=== PATIENT | female | born 1980 | race Caucasian/White ===

== ENCOUNTER 2020-02-29 11:34 | Outpatient (CLI) | payer BC, SELFPAY ==
--- NOTE | 2020-02-29 11:41 | US_ITS ---
WS: [id number] Ultrasound of subcutaneous tissue of the junction of the left neck and left shoulder, 02/29/2020 Clinical Data: NECK MASS Comparison: None. Findings: Only normal subcutaneous tissue could be seen. Normal vessels were seen. There is no evidence of any cyst, mass or abscess. US/US soft tissue head neck [id number] Impression: Normal ultrasound of subcutaneous tissue at the junction of the left neck and l eft shoulder.
== END 2020-02-29 11:35 | disposition home or self-care (01) ==
LOC: US 11:37
PROVIDERS: PCP Electrodiagnostic Medicine; Visit Provider Electrodiagnostic Medicine
DX: R22.1 Localized swelling, mass and lump, neck (principal)
CPT/HCPCS: 76536

== ENCOUNTER 2023-02-01 22:15 | Emergency (ER) | payer OTHER, SELFPAY ==
[2023-02-01 22:25] VITALS: BP 131/81; PULSE 88; RESP 14; TEMP 37; O2SAT 98; BMI 32.3
--- NOTE | 2023-02-01 22:29 | USR_ITS ---
PROCEDURE INFORMATION: Exam: US Duplex Left Lower Extremity Veins, Limited Exam date and time: 02/01/2023 11:01 PM Age: 42 years old Clinical indication: Swelling (edema) of limb; Lower extremity, left; Additional info: Leg swelling TECHNIQUE: Imaging protocol: Real-time duplex ultrasound of the left extremity with 2-D pacheco scale, color Doppler flow and spectral waveform analysis including responses to compression and other maneuvers (when performed) with image documentation. Limited exam focused on the left lower extremity veins. COMPARISON: No relevant prior studies available. FINDINGS: Left deep veins: Unremarkable. The common femoral, femoral, proximal profunda femoral and popliteal veins are patent without thrombus. Normal Doppler waveforms. Normal compressibility and/or augmentation response. Superficial veins: Unremarkable. Saphenofemoral junction is patent without thrombus. Soft tissues: Unremarkable. US/CV venous duplex [facility] [id number] IMPRESSION: No evidence of left leg deep vein thrombosis.
[2023-02-01 22:31] VITALS: PULSE 80
--- NOTE | 2023-02-01 22:40 | W.ED.EXTPRO ---
HPI - Extremity Problem General: Chief complaint: Extremity Problem,Nontraumatic Stated complaint: left leg pain Time Seen by Provider: 02/01/23 22:19 Source: patient Mode of arrival: ambulatory Limitations: no limitations History of Present Illness: 42-year-old female states that she had been at work all day walking tonight when she went to sit on the couch started having slight pain in her left calf she has been going on for 45 minutes states its intermittent nature denies any pain currently states she feels like her calf may be swollen is concerned she may have a DVT denies any fever has no redness. Denies any specific injuries. Associated symptoms: Deny chest pain, fever(s) or rash Review of Systems Const: Denies: fever(s), chills or change in appetite ENMT: Denies: throat pain Card: Denies: chest pain Resp: Denies: dyspnea GI: Denies: abdominal pain, nausea or vomiting Musc: Reports: extremity pain; Denies: neck pain or back pain Skin/Breast: Denies: rash Physical Exam Const: COMMON NORMALS: no acute distress and patient oriented x3 HENMT: COMMON NORMALS: normocephalic HEAD & SCALP: normocephalic Eye: COMMON NORMALS: conjunctivae normal CONJUNCTIVA: Yes conjunctivae normal Chest: COMMONS NORMALS: normal inspection of the chest Resp: COMMON NORMALS: normal respiratory effort and clear to auscultation bilaterally EFFORT & INSPECTION: Yes able to speak in complete sentences AUSCULTATION: clear to auscultation bilaterally Cardio: COMMON NORMALS: regular rate and regular rhythm RATE: regular rate RHYTHM: regular rhythm GI: INSPECTION: Yes normal to inspection Extremity: NARRATIVE EXTREMITY EXAM: no noticable calf swelling or tenderness. no erythema Neuro: COMMON NORMALS: patient oriented x3 Psych: COMMON NORMALS: mental status grossly normal Skin: COMMON NORMALS: no rashes or lesions noted GENERAL SKIN EXAM: no rashes or lesions noted Course Vital Signs: Vital signs: Vital Signs Temperature 98.6 F 02/01/23 22:25 Pulse Rate 98 02/01/23 22:41 Respiratory Rate 17 02/01/23 22:41 Blood Pressure 135/85 02/01/23 22:41 Pulse Oximetry 98 02/01/23 22:41 Oxygen Delivery Me thod Room Air 02/01/23 22:41 MDM - Extremity (Nontraumatic) Medical Decision Making Patient presents here with left leg pain ultrasound shows no DVT is likely muscular in nature exam here is benign she is stable for discharge she is to follow-up with PCP and return if worsening. Medical Records I reviewed the patient's medical records. Lab Data I reviewed the patient's lab results. Discharge Plan Discharge Patient Disposition: Home Clinical Impression: Left leg pain Condition: Stable Discharge Orders: Discharge ED (Routine); Ordered 02/01/23 Ordered By: Stephen Ovalle Referrals: Maxx Yeager DO [Primary Care Provider] - Discharge Diet: Advance as tolerated Discharge Activity: Resume usual activity Patient Instructions: Leg Pain (ED) Coding Level of Care Code ED Lead Worker Of Housekeeping And Laundry for Carmen Pulliam
[2023-02-01 22:41] VITALS: BP 135/85; PULSE 98; RESP 17; O2SAT 98
== END 2023-02-01 23:20 | disposition home or self-care (01) ==
PROVIDERS: Emergency Provider Emergency Medicine; PCP Electrodiagnostic Medicine
DX: M79.605 Pain in left leg (principal)
CPT/HCPCS: 93971; 99284

== ENCOUNTER → 2023-02-15 11:00 | Outpatient (BNVA) | payer OTHER, SELFPAY | PROVIDERS: PCP Electrodiagnostic Medicine; Visit Provider Nurse Practitioner Women's Health | DX: Z12.4 Encounter for screening for malignant neoplasm of cervix (principal) | CPT/HCPCS: 87624 ==

== ENCOUNTER 2023-03-02 15:11 | Outpatient (CLI) | payer OTHER, SELFPAY ==
--- NOTE | 2023-03-02 15:33 | MM_ITS ---
WS: [id number] BILATERAL 3D TOMOSYNTHESIS DIGITAL SCREENING MAMMOGRAPHY WITH CAD CLINICAL INFORMATION: Z12.39 - Encounter for other screening for malignant neop... HISTORY: Screening mammogram. No current complaints. COMPARISON: Baseline TECHNIQUE: Bilateral CC and MLO views. FINDINGS: The breasts are composed of heterogeneous fibroglandular density tissue, which can limit the detectio n of small underlying mass lesions. No suspicious mass, asymmetry, calcifications, or architectural d istortion. No evidence of malignancy. IMPRESSION: MM/[place] [id number] BI-RADS: 1-Negative FOLLOW UP: 1 Year Follow-up Recommend return to annual screening mammography.
== END 2023-03-02 15:12 | disposition home or self-care (01) ==
PROVIDERS: PCP Electrodiagnostic Medicine; Visit Provider Nurse Practitioner Women's Health
DX: Z12.31 Encounter for screening mammogram for malignant neoplasm of breast (principal)
CPT/HCPCS: 77063; 77067

== ENCOUNTER 2023-09-22 06:39 | Outpatient (CLI) | payer OTHER, SELFPAY ==
--- NOTE | 2023-09-22 07:00 | MR_ITS ---
WS: [id number] MRI LEFT KNEE HISTORY: acute tear medial meniscus COMPARISON: LEFT knee radiograph 08/22/2023 Anterior cruciate ligament: Intact ACL. There is a small amount of fluid adjacent to the ACL. Posterior cruciate ligament: Intact. Medial collateral ligament: Intact. Posterior lateral corner structures: Intact. Medial menisci: Intact. Normal signal, size and shape. Lateral meniscus: Intact. Normal signal, size and shape. Extensor mechanism: Distal quadriceps tendon and patellar tendons are intact. Fluid and soft tissue: Small suprapatellar joint effusion. No Vargas's cyst. Osseous and articular structures: Patellofemoral compartment: Mild narrowing of the patellofemoral joint space. No marrow edema. Medial compartment: Mild narrowing of the medial compartment with mild thinning and fissuring of the cartilage. No full-thickness defects. There is superficial marrow edema and irregularity of the lizzy x involving the anterior medial femoral condyle. There is also adjacent soft tissue edema at this loc ation. This may be the site of prior injury. Similar findings can be seen with arthritis. Lateral compartment: Minimal joint space narrowing and thinning of the cartilage. No full-thickness d efect. No marrow edema. IMPRESSION: 1. No meniscal tear. 2. No ACL tear. There is fluid adjacent to the ACL but no tear. 3. Small suprapatellar joint effusion. 4. No fracture. There is superficial marrow edema in the anterior medial femoral condyle. This may b e related to recent trauma or be related to arthritis. 5. Normal MCL.
== END 2023-09-22 06:40 | disposition home or self-care (01) ==
LOC: RAD 06:39
PROVIDERS: PCP Electrodiagnostic Medicine; Visit Provider Electrodiagnostic Medicine
DX: S83.242D Other tear of medial meniscus, current injury, left knee, subsequent encounter (principal); R52 Pain, unspecified; M25.462 Effusion, left knee; X58.XXXD Exposure to other specified factors, subsequent encounter
CPT/HCPCS: 73721

== ENCOUNTER → 2024-06-26 10:26 | Outpatient (BNVA) | payer OTHER, SELFPAY | PROVIDERS: PCP Electrodiagnostic Medicine; Visit Provider Surgery | DX: K82.9 Disease of gallbladder, unspecified | CPT/HCPCS: 99204 ==

== ENCOUNTER 2024-07-02 07:33 | Outpatient (CLI) | payer OTHER, SELFPAY ==
--- NOTE | 2024-07-02 07:42 | MR_ITS ---
WS: [id number] MRI LEFT KNEE HISTORY: LEFT KNEE PAIN COMPARISON: 09/22/2023, radiograph 08/22/2023 Anterior cruciate ligament: ACL is intact. There is fluid extending along the ACL. Posterior cruciate ligament: Intact. Medial collateral ligament: Intact. Posterior lateral corner structures: Intact. Medial menisci: Intact. Normal signal, size and shape. Lateral meniscus: Mild intrasubstance degeneration in the posterior horn. Signal does not extend to a n articular surface. Extensor mechanism: Distal quadriceps tendon and patellar tendons are intact. Fluid and soft tissue: Small suprapatellar joint effusion. Fluid extends into the intercondylar notch and posterior to the femoral condyles. Fluid has slightly increased since the prior exam. No Vargas's cyst. Osseous and articular structures: Patellofemoral compartment: Mild narrowing of the patellofemoral space and there is mild superficial chondromalacia, greatest involving the medial facet. No marrow edema within the patella. Medial compartment: Mild narrowing of the medial compartment. Reidentified is marrow edema along the anteromedial tibial plateau. Cortical irregularity along the articular surface. Mild to moderate diff use chondromalacia along the weightbearing surface of the femoral condyle. Lateral compartment: Negative. MR/MR knee LT wo con* [id number] IMPRESSION: 1. No ACL or meniscal tear. 2. Progression of degenerative arthropathy in the medial compartment. Mild pro gression of chondromalacia with joint space narrowing and marrow edema along th e anterolateral tibial plateau. 3. Mild chondromalacia medial patellar facet.
== END 2024-07-02 07:34 | disposition home or self-care (01) ==
LOC: RAD 07:35
PROVIDERS: PCP Electrodiagnostic Medicine; Visit Provider Nurse Practitioner Family
DX: Z01.89 Encounter for other specified special examinations (principal); M12.862 Other specific arthropathies, not elsewhere classified, left knee; M94.262 Chondromalacia, left knee
CPT/HCPCS: 73721

== ENCOUNTER → 2024-08-01 07:51 | Outpatient (BNVA) | payer OTHER, SELFPAY | PROVIDERS: PCP Electrodiagnostic Medicine; Visit Provider Student in an Organized Health Care Education/Training Program | DX: M25.561 Pain in right knee (principal); M25.562 Pain in left knee; M17.12 Unilateral primary osteoarthritis, left knee | CPT/HCPCS: 20610; 73560; 73565; 99204; J3301 ==

== ENCOUNTER 2024-10-30 10:31 | Emergency (ER) | payer OTHER, SELFPAY ==
[2024-10-30 10:43] VITALS: BP 153/81; PULSE 60; RESP 16; TEMP 36.8; O2SAT 98; BMI 25.7
[2024-10-30 11:35] LABS: Basophils # 0.1 10^3/uL (0.0-0.1); Basophils % 1.3 %; Eosinophils # 0.1 10^3/uL (0.0-0.8); Eosinophils % 1.8 %; Hematocrit 35.8 % (36-47); Lymphocytes # 1.4 10^3/uL (0.8-4.8); Lymphocytes % 25.2 %; Mean Corpuscular HGB Conc 32.4 g/dL (30-55); Mean Corpuscular Hemoglobin 29.7 pg (27-33); Mean Corpuscular Volume 91.6 fl (85-98); Mean Platelet Volume 9.2 fL (7.4-10.4); Monocytes # 0.4 10^3/uL (0.2-0.9); Monocytes % 7.4 %; Neutrophils # 3.49 10^3/uL (1.8-7.7); Neutrophils % 64.1 %; Nucleated Red Blood Cells % 0 %; Platelet Count 264 10^3/cmm (157-399); Red Blood Count 3.91 10^6/uL (3.85-5.65); Red Cell Distribution Width 13.4 % (12.1-15.1); White Blood Count 5.44 10^3/uL (3.29-11.43)
[2024-10-30 11:55] LABS: Alanine Aminotransferase 7 U/L (0-33); Albumin Level 3.9 g/dL (3.5-5.2); Alkaline Phosphatase 66 U/L (35-105); Anion Gap 13.8 (5-19); Aspartate Amino Transferase 9 U/L (0-32); Blood Urea Nitrogen 13 mg/dL (6-20); Calcium 8.9 mg/dL (8.5-10.5); Carbon Dioxide 26 mmol/L (22-29); Chloride 103 mmol/L (98-107); Creatinine Clr Calc Pharmacy 92.2243; Globulin 3.4 g/dL (1.3-4.6); Glomerular Filtration Rate 78.3 mL/min (90-130); Glucose 102 mg/dL (65-115); Osmolality Calculated 288 mOsm/kg (285-295); Potassium 3.8 mmol/L (3.5-5.1); Sodium 139 mmol/L (136-145); Total Bilirubin 1.3 mg/dL (0.15-1.2); Total Protein 7.3 g/dL (6.6-8.7)
--- NOTE | 2024-10-30 11:56 | US_ITS ---
WS: [id number] US pelvis lmt w transvag HISTORY: verify IUD placement COMPARISON: None available. Uterus: 9.4 cm x 6.7 cm x 5.6 cm. Mildly enlarged uterus. Endometrium: 0.8 cm. Limited visualization of the entire IUD but it does appear appropriately positioned. IUD does not extend beyond the fundus of the uterus. Right ovary: 2.7 cm x 2.0 cm x 1.3 cm. Normal size and vascularity, no cystic or solid masses. Left ovary: 2.4 cm x 1.7 cm x 2.4 cm. Normal size and vascularity, no cystic or solid masses. No free fluid in the cul-de-sac. US/US pelvis lmt w transvag IMPRESSION: Appropriately positioned IUD.
[2024-10-30 12:09] VITALS: BP 126/85; O2SAT 98
--- NOTE | 2024-10-30 12:26 | ED_ITS ---
HPI - General Adult 2 General: Chief complaint: Vaginal Bleeding Stated complaint: vaginal bleeding, had a D&C on 10/23 Time Seen by Provider: 10/30/24 10:53 History of Present Illness: 44-year-old female who presents to the e mergency room with complaints of vaginal bleeding. 1 week ago patient had a D&C and placement of an IUD. She has had increasing bleeding since then. Procedure was done in [place]. She has not had any fever sweats or chills. No dysuria urgency or frequency. The IUD is a Mirena. Associated symptoms: Deny chest pain, dyspnea or rash Related Data Home Medications ?Medication ?Instructions ?Recorded ?Confirmed cetirizine 10 mg capsule (Zyrtec) 10 mg PO DAILY PRN 0 02/15/23 08/01/24 Allergies Allergy/AdvReac Type Severity Reaction Status Date / Time citalopram Allergy ADR-Confusi Verified 10/30/24 10:46 on Review of Systems 2 Const: Denies: fever(s) or chills Card: Denies: chest pain Resp: Denies: dyspnea GI: Denies: abdominal pain : Reports: vaginal bleeding; Denies: dysuria, urinary frequency or urinary urgency Musc: Denies: neck pain or back pain Skin/Breast: Denies: rash PFSH ED 2 PFSH: Family History Denies family history of Colon cancer Ovarian cancer Diabetes Hyperlipidemia Breast cancer Hypertension Uterine cancer Thyroid disease Stroke Social History Smoking and tobacco/nicotine status: former use of tobacco/nicotine Marital status: Physical Exam 2 Const: COMMON NORMALS: no acute distress GENERAL APPEARANCE: cooperative and comfortable ORIENTATION/CONSCIOUSNESS: Yes awake, Yes oriented to person, Yes oriented to place and Yes oriented to time HENMT: COMMON NORMALS: normocephalic, atraumatic and hearing grossly normal bilaterally HEAD & SCALP: normocephalic and atraumatic Resp: COMMON NORMALS: normal respiratory effort, No retractions, No use of accessory muscles and clear to auscultation bilaterally AUSCULTATION: clear to auscultation bilaterally Cardio: COMMON NORMALS: regular rate, regular rhythm and No murmurs present (Cardio) RATE: regular rate RHYTHM: regular rhythm GI: COMMON NORMALS: Soft to palpation and No hepatosplenomegaly present A USCULTATION: Yes normoactive bowel sounds PALPATION: Yes Soft to palpation, No Tenderness to palpation present (GI), No Guarding due to palpation present (GI) and Yes No hepatosplenomegaly present Extremity: COMMON NORMALS: normal to inspection, capillary refill normal, no clubbing, cyanosis or edema, no calf tenderness and no pedal edema Neuro: SENSORIUM/ORIENTATION: Yes oriented to person, Yes oriented to place and Yes oriented to time Skin: COMMON NORMALS: no rashes or lesions noted GENERAL SKIN EXAM: no rashes or lesions noted Course 2 Vital Signs: Vital signs: Vital Signs Temperature 98.2 F 10/30/24 10:43 Pulse Rate 84 10/30/24 16:19 Respiratory Rate 16 10/30/24 10:43 Blood Pressure 131/76 10/30/24 16:19 Pulse Oximetry 98 10/30/24 16:19 Oxygen Delivery Me thod Room Air 10/30/24 12:09 MDM - General Adult Medical Decision Making IUD is in place no migration. Patient still is having heavy bleeding. Certainly having a significant cramping however. I was able to get a hold of her housing director she recommends treating with estrogen. She will contact patient and call in estrogen dose for her. Hemoglobin stable at this time the housing director reported prior to surgery was slightly above 12 it is 11 6 today. Discussed with the patient she is in agreement we will discharge patient home have her follow-up with gynecology. Lab Data 10/30/24 11:28 10/30/24 11:28 Radiology Impressions Pelvic/Transvag US 10/30/24 11:56 IMPRESSION: Appropriately positioned IUD. Laboratory Results WBC 5.44 10^3/uL (3.29-11.43) 10/30/24 11:28 RBC 3.91 10^6/uL (3.85-5.65) 10/30/24 11:28 Hgb 11.60 g/dL (11.27-16.99) 10/30/24 11:28 Hct 35.8 % (36-47) L 10/30/24 11:28 MCV 91.6 fl (85-98) 10/30/24 11:28 MCH 29.7 pg (27-33) 10/30/24 11:28 MCHC 32.4 g/dL (30-55) 10/30/24 11:28 RDW 13.4 % (12.1-15.1) 10/30/24 11:28 Plt Count 264 10^3/cmm (157-399) 10/30/24 11:28 MPV 9.2 fL (7.4-10.4) 10/30/24 11:28 Neut % (Auto) 64.1 % 10/30/24 11:28 Lymph % (Auto) 25.2 % 10/30/24 11:28 [place] % (Auto) 7.4 % 10/30/24 11:28 Eos % (Auto) 1.8 % 10/30/24 11:28 Baso % (Auto) 1.3 % 10/30/24 11:28 Neut # (Auto) 3.49 10^3/uL (1.8-7.7) 10/30/24 11:28 Lymph # (Auto) 1.4 10^3/uL (0.8-4.8) 10/30/24 11:28 [place] # (Auto) 0.4 10^3/uL (0.2-0.9) 10/30/24 11:28 Eos # (Auto) 0.1 10^3/uL (0.0-0.8) 10/30/24 11:28 Baso # (Auto) 0.1 10^3/uL (0.0-0.1) 10/30/24 11:28 Nucleated RBC % (auto) 0 % 10/30/24 11:28 Nucleated RBCs # 0.0 /100WBC 10/30/24 11:28 Sodium 139 mmol/L (136-145) 10/30/24 11:28 Potassium 3.8 mmol/L (3.5-5.1) 10/30/24 11:28 Chloride 103 mmol/L (98-107) 10/30/24 11:28 Carbon Dioxide 26 mmol/L (22-29) 10/30/24 11:28 Anion Gap 13.8 (5-19) 10/30/24 11:28 BUN 13 mg/dL (6-20) 10/30/24 11:28 Creatinine 0.8 mg/dL (0.5-0.9) 10/30/24 11:28 GFR Calculation 78.3 mL/min (90-130) L 10/30/24 11:28 Glucose 102 mg/dL (65-115) 10/30/24 11:28 Calculated Osmolality 288 mOsm/kg (285-295) 10/30/24 11:28 Calcium 8.9 mg/dL (8.5-10.5) 10/30/24 11:28 Total Bilirubin 1.3 mg/dL (0.15-1.2) H 10/30/24 11:28 AST 9 U/L (0-32) 10/30/24 11:28 ALT 7 U/L (0-33) 10/30/24 11:28 Alkaline Phosphatase 66 U/L (35-105) 10/30/24 11:28 Total Protein 7.3 g/dL (6.6-8.7) 10/30/24 11:28 Albumin 3.9 g/dL (3.5-5.2) 10/30/24 11:28 Globulin 3.4 g/dL (1.3-4.6) 10/30/24 11:28 All radiology interpretation(s) finalized by discharge Discharge Plan Discharge Patient Disposition: Home Clinical Impression: Vaginal bleeding Condition: Stable Prescriptions: No Action Zyrtec 10 mg capsule 10 mg PO DAILY PRN Discharge Orders: Discharge ED (Routine); Ordered 10/30/24 Ordered By: Kole Gallardo Referrals: Sultana So APRN [Primary Care Provider, Family Practice] Discharge Diet: Usual diet Discharge Activity: Resume usual activity Patient Instructions: Opioid Safety, Pain Management Activity Restrictions/Additional Instructions: Thank you for choosing [facility] for your healthcare needs today. It is very important that you follow up as instructed or that you return to the Emergency Department should you have concerns or if your condition changes or worsens in any way. You were seen in the emergency room with complaints of vaginal bleeding after your procedure. IUD appears to be in place. Discussed with your housing director. She is calling in estrogen to take to help control the bleeding and will be contacting as well. Your hemoglobin has decreased slightly from your surgery but is still stable. Stand Alone Forms: Work/School Release Print Language: Bur[place]ian Coding Level of Care Code ED Associate Professor Of Education for Carmen Pulliam
[2024-10-30 16:19] VITALS: BP 131/76; PULSE 84; O2SAT 98
== END 2024-10-30 16:20 | disposition home or self-care (01) ==
PROVIDERS: Emergency Medicine; Emergency Provider Family Medicine; PCP Nurse Practitioner Family
DX: N93.9 Abnormal uterine and vaginal bleeding, unspecified (principal); Z97.5 Presence of (intrauterine) contraceptive device; Z87.891 Personal history of nicotine dependence; Z98.890 Other specified postprocedural states
CPT/HCPCS: 36415; 76830; 76857; 80053; 85025; 99284

== ENCOUNTER → 2025-01-22 10:47 | Outpatient (BNVA) | payer OTHER, SELFPAY | PROVIDERS: PCP Family Medicine Geriatric Medicine; Visit Provider Student in an Organized Health Care Education/Training Program | DX: M17.12 Unilateral primary osteoarthritis, left knee (principal) | CPT/HCPCS: 99213 ==